=== PATIENT | male | born 1955 | race Caucasian/White ===

== ENCOUNTER 2017-03-06 13:02 | Inpatient (IN) | payer BC ==
[~2017-03-06] VITALS: Ht 172.7 cm; Wt 97.4 kg
[2017-03-06] MEDS ORDERED: TAMS-11 PO (14:28)
[2017-03-06 14:42] LABS: HEMATOCRIT 48.6 % (39.2-51.8); HEMOGLOBIN 16.6 g/dL (13.7-18.0); WHITE BLOOD COUNT 5.8 x10^3/uL (3.4-10)
[2017-03-06 14:55] LABS: BLOOD UREA NITROGEN 15 mg/dL (7-18); IS PT STATUS REG ER OR PRE ER? YES
[2017-03-06 15:00] LABS: ASPARTATE AMINO TRANSFERASE 18 U/L (15-37)
[2017-03-06] MEDS ORDERED: ASPIRIN 81 MG TABLET CHEW ONE (16:45)
[2017-03-06] MEDS ORDERED: morphine SULFATE 10 MG/ML, 1ML IVPush PRN (17:30)
[2017-03-06] MEDS ORDERED: ONDANSETRON 2MG/ML, 2ML IVPush PRN (17:30)
[2017-03-06] MEDS ORDERED: HYDROcodone/APAP 5/325 TABLET PO PRN (17:30)
[2017-03-06] MEDS ORDERED: hydrALAzine 20 MG/ML, 1ML IVPush PRN (17:30)
[2017-03-06] MEDS ORDERED: GADOBUTROL 10 MMOL/10 ML PFS ONE (18:01)
[2017-03-06 20:00] VITALS: BP 129/80
[2017-03-06] MEDS: ATORVASTATIN 40 MG TABLET PO SCH (21:00)
[2017-03-06 21:38] VITALS: BP 129/80
[2017-03-06] MEDS: ACETAMINOPHEN 325 MG TABLET PO PRN (22:31)
[2017-03-06 23:39] VITALS: BP 122/79
[2017-03-06 23:40] VITALS: BP_SYST 129; BP_SYST 130; BP_DIAS 72; BP_DIAS 82
[2017-03-07 03:45] VITALS: BP_SYST 111; BP_SYST 96; BP_SYST 98; BP_DIAS 61; BP_DIAS 65; BP_DIAS 73
[2017-03-07] MEDS ORDERED: ASPIRIN 325 MG TABLET PO SCH (06:00)
[2017-03-07] MEDS: ASPIRIN 325 MG TABLET EC PO SCH (06:14)
[2017-03-07] MEDS: ENOXAPARIN 40 MG/0.4 ML SQ SCH (09:23)
[2017-03-07] MEDS: TAMSULOSIN 0.4 MG CAP.ER.24H PO SCH (09:23)
[2017-03-07 12:35] VITALS: BP_SYST 136; BP_SYST 138; BP_SYST 140; BP_DIAS 86; BP_DIAS 87; BP_DIAS 89
[2017-03-07] MEDS: ACETAMINOPHEN 325 MG TABLET PO PRN (18:46)
[2017-03-07 19:29] VITALS: BP 125/80
[2017-03-07 19:32] VITALS: BP 121/76
[2017-03-07 19:33] VITALS: BP 132/86
[2017-03-07] MEDS: ATORVASTATIN 40 MG TABLET PO SCH (21:00)
[2017-03-08 04:10] VITALS: BP 119/77
[2017-03-08] MEDS: ASPIRIN 325 MG TABLET EC PO SCH (05:36)
[2017-03-08 07:51] VITALS: BP_SYST 110; BP_SYST 124; BP_SYST 126; BP_DIAS 73; BP_DIAS 85; BP_DIAS 91
[2017-03-08] MEDS ORDERED: ASPI-650 PO (08:41)
[2017-03-08] MEDS ORDERED: ATOR40TA78 PO (08:41)
[2017-03-08] MEDS: ENOXAPARIN 40 MG/0.4 ML SQ SCH (10:33)
[2017-03-08] MEDS: TAMSULOSIN 0.4 MG CAP.ER.24H PO SCH (10:33)
[2017-03-08 13:53] VITALS: BP 113/74
== END 2017-03-08 16:40 | disposition home or self-care (01) | DRG 93 ==
LOC: ED 13:50 → EDIP 16:20 → 4EST 18:20
PROVIDERS: ADMIT Internal Medicine; ATTEND Internal Medicine
DX: R47.01 Aphasia (principal); H70.90 Unspecified mastoiditis, unspecified ear; Z87.891 Personal history of nicotine dependence; R27.0 Ataxia, unspecified
CPT/HCPCS: 36415; 70450; 70553; 71010; 80053; 80061; 81003; 84439; 84443; 84484; 85025; 93005; 93306; 93880; 99285; A9585; J1650